=== PATIENT | female | born 1950 | race Caucasian/White ===

== ENCOUNTER → 2016-05-22 | Outpatient (CLI) | payer OTHER | END | disposition home or self-care (01) | LOC: RESC 08:52 | DX: R06.00 Dyspnea, unspecified (principal); R94.2 Abnormal results of pulmonary function studies ==

== ENCOUNTER → 2016-07-17 | Outpatient (CLI) | payer OTHER ==
--- NOTE | 2016-07-26 16:19 | SS ---
ADMIT: 07/17/2016 RM/LOC: [facility] MR#: [id number] [place], [place] [id number] LENOP[address] IRWIN [address] [place] [address] Sleep Study SEX: F AGE: 65 : 1950 STUDY DATE: 07/17/2016 CLINICAL HISTORY: This a 65-year-old female, body mass index 33.3, 60 inches tall, known history of obstructive sleep apnea with treatment emergent central apneas, who is here for re-evaluation of CPAP pressures. TECHNICAL DESCRIPTION: CPAP titration performed on night of 07/17/2016 attended by trained time study technologist. TITRATION FINDINGS: TITRATION DESCRIPTION: Patient was titrated from 5 cm of CPAP to 9 cm of CPAP. Small AirFit F20 full face mask was used as interface. SLEEP: Total time in bed is 472 minutes, total sleep time 399 minutes, sleep efficiency is 84.5%. 68.3% hours spent in stage II sleep, 7.9% of time was spent in stage REM. BREATHING: The patient had few obstructive hypopneas noted between 5-7 cm of CPAP. At 9 cm, the patient was seen in REM sleep in lateral position with complete resolution of obstructive events. REM supine sleep was not seen at this ending pressure. There were no central events noted at this pressure. CPAP at 9 cm appears to be ideal for resolution of obstructive events. OXYGEN SATURATION: Mean sleeping oxygen saturation is 93%. CARDIAC: Average heart rate 83 beats per minute. MOVEMENTS/POSITION: During the study, patient slept in the supine lateral position with a periodic limb movement index of 31.1. IMPRESSION/PLAN: Recommending CPAP 9 cm with mask as mentioned above. Recommend losing weight, avoiding sedatives and alcohol. Refrain from driving if excessive sleepy. Clinical correlation needed. CPAP compliance followup is recommended. Harshad Aguirre MD/ vika JOB #: [id number] CC: Oscar Stokes MD, Attending Physician Oscar Stokes MD, Family Physician Oscar Stokes MD
== END | disposition home or self-care (01) ==
LOC: RESC 20:37
DX: G47.33 Obstructive sleep apnea (adult) (pediatric) (principal)

== ENCOUNTER → 2016-08-14 | Outpatient (CLI) | payer OTHER | END | disposition home or self-care (01) | LOC: RAD.S 13:46 | PROC: 3E0U3BZ Introduction of Anesthetic Agent into Joints, Percutaneous Approach (ICD-10-PCS; principal; 2016-08-14) | PROC: 3E0U33Z Introduction of Anti-inflammatory into Joints, Percutaneous Approach (ICD-10-PCS; principal; 2016-08-14) | DX: M19.072 Primary osteoarthritis, left ankle and foot (principal); M19.071 Primary osteoarthritis, right ankle and foot ==